=== PATIENT | female | born 1950 | race Two or more races ===

== ENCOUNTER 2023-12-14 20:32 | Emergency (ER) | payer OTHER, MEDICAID ==
[~2023-12-14] VITALS: Ht 160 cm; Wt 52.0 kg
[2023-12-14 21:18] LABS: Basophils # (auto) 0 10 ^3/uL (0-0.2); Basophils % (auto) 0.5 % (0.0-2.0); Eosinophils # (auto) 0.1 10 ^3/uL (0-0.8); Eosinophils % (auto) 1.2 % (0.0-7.0); Hematocrit 32.2 % (36.0-46.0); Hemoglobin 10.4 g/dL (12.2-16.2); Lymphocytes # (auto) 1.2 10 ^3/uL (0.4-5.4); Lymphocytes % (auto) 16.3 % (10.0-50.0); Mean Corpuscular Hemoglobin 29.6 pg (28.0-32.0); Mean Corpuscular Hgb Conc. 32.4 g/dL (32.0-36.0); Mean Corpuscular Volume 91.4 fL (80.0-100.0); Monocytes # (auto) 0.6 10 ^3/uL (0-1.3); Monocytes % (auto) 8.7 % (0.0-12.0); Neutrophils # (auto) 5.4 10 ^3/uL (1.6-8.6); Neutrophils % (auto) 73.3 % (37.0-80.0); Platelet Count (auto) 174 10^3/uL (140-450); Red Blood Cells 3.52 10^6/uL (4.0-5.20); Red Cell Distribution Width 13.5 % (11.8-14.3); White Blood Cell 7.3 10^3/uL (4.4-10.8)
[2023-12-14 21:35] LABS: Alanine Aminotransferase 17 U/L (7-40); Alkaline Phosphatase 102 U/L (46-116)
[2023-12-14 21:36] LABS: Albumin 4.3 g/dL (3.2-4.8); Anion Gap 4 (5-15); Aspartate Aminotransferase 32 U/L (13-40); BUN/Creatinine Ratio 23.8 (10.0-20.0); Bilirubin, Total 0.4 mg/dL (0.2-1.0); Blood Urea Nitrogen 29 mg/dL (9-23); Calcium 11.3 mg/dL (8.7-10.4); Carbon Dioxide 25 mmol/L (20-31); Chloride 114 mmol/L (98-107); Glucose 113 mg/dL (74-106); Lipase 62 U/L (12-53); Potassium 4.5 mmol/L (3.5-5.1); Sodium 143 mmol/L (136-145); Total Protein 6.8 g/dL (5.7-8.2)
[2023-12-15 00:32] VITALS: PULSE 60; RESP 18; TEMP 97.9; O2SAT 97
[2023-12-15] MEDS: PANTOPRAZOLE 40 MG/10 ML VIAL INJ IV ONE (00:50)
[2023-12-15] MEDS: SODIUM CHLORIDE 0.9% 500 ML IVB ONE (00:51)
[2023-12-15] MEDS: MORPHINE SULFATE 4 MG/ML SYR/VIAL IV ONE (00:51)
[2023-12-15] MEDS: ONDANSETRON HCL 4 MG/2 ML VIAL IV ONE (00:52)
[2023-12-15] MEDS ORDERED: ZOFR4T PO (01:34)
[2023-12-15] MEDS ORDERED: ACET-1304 PO (01:34)
[2023-12-15] MEDS ORDERED: AUG875T PO (01:34)
[2023-12-15] MEDS ORDERED: MAGN100T6 OR (01:34)
[2023-12-15] MEDS ORDERED: METR-344 PO (01:35)
[2023-12-15 02:40] VITALS: BP 155/57; PULSE 58; RESP 12; O2SAT 99
== END 2023-12-15 02:54 | disposition home or self-care (01) ==
LOC: ER 20:32 → EDBD 20:32 → ER 12-15 02:50
DX: R10.13 Epigastric pain (principal); I10 Essential (primary) hypertension; E11.9 Type 2 diabetes mellitus without complications; F17.210 Nicotine dependence, cigarettes, uncomplicated; Z98.890 Other specified postprocedural states
CPT/HCPCS: 36415; 74176; 76705; 80053; 83690; 84484; 85025; 93005; 96374; 96375; 99285; J2270; J2405; J2470